=== PATIENT | female | born 1945 | race Caucasian/White ===

== ENCOUNTER 2018-12-21 20:18 | Emergency (ER) | payer MEDICARE, SELFPAY ==
[2018-12-21 20:22] VITALS: BP 191/89; PULSE 119; RESP 20; TEMP 37.6; O2SAT 98
--- NOTE | 2018-12-21 21:10 | ED.GENADULT ---
HPI - General Adult General Chief complaint: Urogenital-Female Stated complaint: lower abdominal pain Time Seen by Provider: 12/21/18 20:52 Source: patient Mode of arrival: ambulatory Limitations: no limitations History of Present Illness HPI narrative: Patient is a 73-year-old lady with approximately 1 day of dysuria, frequency, urgency, burning when she urinates, no vomiting. No back pain. No fevers. No change in bowel habits. No vaginal bleeding. No skin changes. Has never had a urinary tract infection the past Related Data Previous Rx's Medication Instructions Recorded cephalexin [Keflex] 500 mg PO BID 5 Days #10 cap 12/21/18 phenazopyridine [Pyridium] 100 mg PO TID PRN 2 Days #6 tab 12/21/18 Allergies Allergy/AdvReac Type Severity Reaction Status Date / Time Latex, Natural Rubber Allergy Verified 12/21/18 20:45 Review of Systems Constitutional Denies fever(s) and Denies headache(s) ENT Ears, Nose, Mouth, and Throat: Denies headache(s) Cardiovascular Denies chest pain and Denies dyspnea Respiratory Denies dyspnea Gastrointestinal Gastrointestinal: Reports abdominal pain (Lower abdomen), Denies nausea and Denies vomiting Genitourinary Reports urinary frequency, Reports difficulty voiding, Reports dysuria, Denies pelvic pain, Reports urinary hesitancy, Reports urinary urgency and Denies vaginal discharge Integumentary/Breasts Denies rash Neurologic Denies headache(s) Hematologic/Lymphatic Denies easy bleeding and Denies easy bruising PFSH Surgical History No pertinent past surgical history (Acute) Social History Smoking Status: Never smoker Social History Smoking Status: Never smoker Exam Initial Vital Signs Initial Vital Signs: Vital Signs Temperature 99.6 F 12/21/18 20:22 Pulse Rate 119 H 12/21/18 20:22 Respiratory Rate 20 12/21/18 20:22 Blood Pressure 191/89 H 12/21/18 20:22 Pulse Oximetry 98 12/21/18 20:22 Const General: cooperative, comfortable, well developed, well groomed and No acute distress Resp Effort & Inspection: normal respiratory effort Cardio Rate: regular rate GI Inspection: non-distended Palpation: soft Back/Spine/Pelvis Back: No CVA tenderness Skin Lesions: no lesions Rashes: no rashes Neuro General: alert, awake and oriented x3 Cognition: normal cognition Speech: speech normal Gait: normal gait Extrem General: normal to inspection and capillary refill normal Psych Appearance: grossly normal and well kempt Course Orders Ordered: Discontinued Medications Cephalexin HCl (Keflex) 500 mg PO NOW ONE Stop: 12/21/18 21:19 Last Admin: 12/21/18 21:27 Dose: 500 mg Phenazopyridine HCl (Pyridium) 100 mg PO NOW ONE Stop: 12/21/18 21:19 Last Admin: 12/21/18 21:27 Dose: 100 mg Vital Signs - 8 hr 12/21/18 20:22 12/21/18 21:36 Temperature 99.6 F Pulse Rate 119 H 101 H Respiratory Rate 20 20 Blood Pressure 191/89 H 181/88 H Pulse Oximetry 98 98 Medical Decision Making MDM Narrative Medical decision making narrative: Patient's history and physical exam is consistent with a urinary tract infection. Bladder scan shows no signs of urinary retention. Physical exam is not consistent pyelonephritis. Will empirically treat her with antibiotics without obtaining a urinalysis. I did discuss this with the patient. Did inform her that there is a benefit to obtaining a urine culture to evaluate for sensitivities. Patient expressed understanding this however decided not to wait to provide us with a urine sample. She stated that she was unable to urinate. Feel that her history and physical is consistent with urinary tract infection will treat empirically for this. She was given return precautions and follow-up instructions. She expressed understanding and agreement plan. Discharge Plan Departure Patient Disposition: Home Clinical Impression: Dysuria Urinary tract infection Qualifiers: Urinary tract infection type: site unspecified Hematuria presence: without hematuria Qualified Code(s): N39.0 - Urinary tract infection, site not specified Discharge Date/Time: 12/21/18 21:36 Interventions: ED Discharge Assessment Last Done: 12/21/18 21:36 Instructions: DI for Dysuria -- Adult Activity Restrictions/Additional Instructions: Take the antibiotics as directed. Contact your primary provider for follow-up. Return to the emergency department for any new or worsening symptoms Prescriptions: New phenazopyridine [Pyridium] 100 mg tablet 100 mg PO TID PRN (Reason: pain) 2 Days Qty: 6 RF: 0 cephalexin [Keflex] 500 mg capsule 500 mg PO BID 5 Days Qty: 10 RF: 0
[2018-12-21] MEDS: PHENAZOPYRIDINE 100 MG TABLET PO (21:27)
[2018-12-21] MEDS: cephALEXin 250 MG CAPSULE 500 MG PO (21:27)
[2018-12-21 21:36] VITALS: BP 181/88; PULSE 101; RESP 20; O2SAT 98
== END 2018-12-21 21:36 | disposition home or self-care (01) ==
PROVIDERS: Emergency Provider Emergency Medicine
DX: R30.0 Dysuria (principal); N39.0 Urinary tract infection, site not specified
CPT/HCPCS: 51798; 99283